=== PATIENT | female | born 1995 | race Caucasian/White ===

== ENCOUNTER 2016-10-01 11:10 | Emergency (ER) | payer OTHER ==
[2016-10-01 11:18] VITALS: TEMP 98.5; BMI 20.7
--- NOTE | 2016-10-01 11:47 | PDOC ---
History of Present Illness - General Chief Complaint: Lightheaded Stated Complaint: DIZZINESS, SOB Time Seen by Provider: 10/01/16 11:36 History Source: Patient Exam Limitations: No Limitations - History of Present Illness Initial Comments: 10/01/16 11:41 21 yo F with no significant PMHx presents with 3 hr history of chest discomfort and dizziness. SHe states that this morning at 800 she felt dizzy while getting out of bed. She states that she feels as if the room is spinning and made worse by position change. Dizziness is accompanied by intermittent 6/10 stabbing chest pain that radiates from left to right sternal border made worse by coughing. She cough is non-productive and 3 days in duration. Denies fevers, chills, recent travel , sick contacts. Presenting Symptoms: Chest Pain Timing/Duration: reports: intermittent Severity/Quality: reports: moderate Location: reports: other (left chest wall ) Chest Pain Radiation: reports: other (right chest wall ) Activities at Onset: reports: none Modifying Factors: improves with: breathing Associated Symptoms: Yes: Dizziness Past History - Travel Traveled outside of the country in the last 30 days: No Close contact w/someone who was outside of country & ill: No - Past Medical History Allergies/Adverse Reactions: Allergies Allergy/AdvReac Type Severity Reaction Status Date / Time No Known Allergies Allergy Verified 10/01/16 11:18 Home Medications: Ambulatory Orders NK [No Known Home Medication] 11/14/14 - Immunization History Immunization Up to Date: Yes - Psycho/Social/Smoking Cessation Hx Anxiety: No Suicidal Ideation: No Smoking Status: No Smoking History: Never smoked Number of Cigarettes Smoked Daily: 0 Hx Alcohol Use: No Drug/Substance Use Hx: No Substance Use Type: None Review of Systems - Review of Systems Able to Perform ROS?: Yes Is the patient limited Frisian proficient: No Cardiac (ROS): Yes: Chest Pain, Lightheadedness ABD/GI: Yes: Nausea Neurological: Yes: Dizziness All Other Systems: Reviewed and Negative *Physical Exam - Vital Signs Last Vital Signs Temp Pulse Resp BP Pulse Ox 98.5 F 78 18 130/88 100 10/01/16 11:16 10/01/16 11:16 10/01/16 11:16 10/01/16 11:16 10/01/16 11:16 - Physical Exam General Appearance: Yes: Mild Distress HEENT: positive: EOMI, HOPE Respiratory/Chest: positive: Lungs Clear, Normal Breath Sounds. negative: Respiratory Distress, Accessory Muscle Use Cardiovascular: positive: Regular Rhythm, Regular Rate, S1, S2. negative: Edema , JVD, Murmur Gastrointestinal/Abdominal: positive: Normal Bowel Sounds, Flat, Soft Extremity: positive: Normal Capillary Refill, Normal Inspection, Normal Range of Motion Integumentary: positive: Normal Color, Dry, Warm. 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 NML intact, Fully Oriented, Alert, Normal Mood/ Affect, Motor Strength 10/14 ED Treatment Course - LABORATORY CBC & Chemistry Diagram: 10/01/16 11:50 10/01/16 11:50 - ADDITIONAL ORDERS Additional order review: Laboratory Results 10/01/16 11:50 Sodium 141 Potassium 4.2 Chloride 105 Carbon Dioxide 25 Anion Gap 11 BUN 13 D Creatinine 0.7 D Creat Clearance w eGFR > 60 Random Glucose 64 L D Calcium 8.9 Total Bilirubin 0.4 AST 14 L ALT 20 Alkaline Phosphatase 93 Troponin I < 0.02 Total Protein 7.5 Albumin 4.0 10/01/16 11:50 RBC 4.22 MCV 92.0 MCHC 34.3 RDW 12.5 MPV 7.2 L Neutrophils % 63.0 Lymphocytes % 26.3 Monocytes % 8.0 Eosinophils % 2.0 Basophils % 0.7 - Medications Given in the ED: ED Medications Discontinued Medications Generic Name Dose Route Start Last Admin Trade Name Freq PRN Reason Stop Dose Admin Sodium Chloride 1,000 mls @ 1,000 mls/hr 10/01/16 11:48 10/01/16 11:55 Normal Saline - IV 10/01/16 12:47 1,000 mls/hr ASDIR STA Administration Ketorolac Tromethamine 30 mg 10/01/16 12:36 10/01/16 13:39 Toradol Injection - IVPUSH 10/01/16 12:37 30 mg ONCE ONE Administration Medical Decision Making - Medical Decision Making 10/01/16 11:56 21 yo F with no significant PMHx presents with 3 hr history of chest discomfort and dizziness. Most likely vertigo. Will send stat labs to r/o ACS and any metabolic abnormalities. WIll give meclizine and 1L IV NS. 10/01/16 14:43 Patient doing much better after fluids and toradol. Labs WNL. Will discharge home *DC/Admit/Observation/Transfer Diagnosis at time of Disposition: Atypical chest pain - Discharge Dispostion Admit: No - Referrals Referrals: Jen Ang MD [Primary Care Provider] - - Patient Instructions Printed Discharge Instructions: DI for Costochondritis Additional Instructions: Please establish care ALEKSANDR with primary physician. Pain is most likely costrochondritis. Ibuprofen for pain. Regular diet. Increase activity as tolerated. If pain returns or worsens please return to ER.
[2016-10-01] MEDS ORDERED: SODIUM CHLORIDE 1,000 ML IV STA (11:48)
[2016-10-01 11:55] LABS: BASOPHIL 0.7 % (0-2.0); MCH 31.6 pg (25.7-33.7); MCHC 34.3 g/dl (32.0-36.0); MEAN PLT VOLUME 7.2 fl (7.5-11.1); PLATELET COUNT 268 K/MM3 (134-434); RDW 12.5 % (11.6-15.6); WHITE BLOOD COUNT 7.9 K/mm3 (4.0-10.0)
[2016-10-01 12:22] LABS: ANION GAP 11 (8-16); BILIRUBIN,TOTAL 0.4 mg/dL (0.2-1.0); CALCIUM 8.9 mg/dL (8.5-10.1); CO2 25 mmol/L (21-32); COCKROFT - GAULT 114.7415; CREATININE 0.7 mg/dL (0.55-1.02); GLUCOSE,RANDOM 64 mg/dL (74-106); SGOT/AST 14 U/L (15-37); SGPT/ALT 20 U/L (12-78); TOT PROT 7.5 g/dl (6.4-8.2)
[2016-10-01 12:25] LABS: ALK PHOS 93 U/L (45-117); TROPONIN I < 0.02 ng/ml (0.00-0.05)
--- NOTE | 2016-10-01 12:31 | PDOC ---
Attending Attestation - Resident Resident Name: Aurelio Recinos - ED Attending Attestation I have performed the following: I have examined & evaluated the patient, The case was reviewed & discussed with the resident, I agree w/resident's findings & plan - HPI HPI: 10/01/16 14:54 21y F wo pmhx presents with mild chest discomfort and dizziness for the past 3 hrs, pt feels room spinning dizziness that is positional, associated with approx 3 days of nonproductive coughing which exacerbates her cp. no associated hemoptysis, leg swelling, gaston. exam unremarakble beside mild reproducible tenderess in the sternum. labs unremarkble suspect costocondritis with mild vertigo will dc with pmd fu return precautions were discussed - Physicial Exam PE: 10/02/16 17:57 see above - Medical Decision Making 10/02/16 17:57 see above Heart Score/ECG Review - ECG Impressions Comment:: 10/01/16 17:33 Twelve-lead EKG was performed and reviewed by me. There is normal sinus rhythm with a normal rate. rate of 75 The axis is normal. The intervals are normal. There is normal R wave progression There are no ST or T wave abnormalities. Impression: Normal twelve-lead EKG
[2016-10-01] MEDS ORDERED: KETOROLAC TROMETHAMINE 30 MG/1 ML VIAL IVPUSH ONE (12:36)
[2016-10-01] MEDS ORDERED: KETOROLAC TROMETHAMINE 30 MG/1 ML VIAL ONE (13:27)
[2016-10-01 15:33] VITALS: BP 115/78; PULSE 71
--- NOTE | 2016-10-03 12:15 | EKG ---
Test Reason : Blood Pressure : / mmHG Vent. Rate : 075 BPM Atrial Rate : 075 BPM P-R Int : 160 ms QRS Dur : 078 ms QT Int : 378 ms P-R-T Axes : 026 057 053 degrees QTc Int : 422 ms NORMAL SINUS RHYTHM NORMAL ECG WHEN COMPARED WITH ECG OF 14-NOV-2014 23:32, NO SIGNIFICANT CHANGE WAS FOUND Confirmed by KARY MONTELONGO MD ([id number]) on 10/03/2016 12:15:36 PM Referred By: Confirmed By:KARY MONTELONGO MD
== END 2016-10-01 15:33 | disposition home or self-care (01) ==
LOC: JER 11:10
PROC: 3E0337Z Introduction of Electrolytic and Water Balance Substance into Peripheral Vein, Percutaneous Approach (ICD-10-PCS; principal; 2016-10-01)
PROC: 3E0333Z Introduction of Anti-inflammatory into Peripheral Vein, Percutaneous Approach (ICD-10-PCS; 2016-10-01)
DX: R07.89 Other chest pain (principal)
CPT/HCPCS: 36415; 80053; 84484; 84703; 85025; 93005; 93010; 96361; 96374; 99283-25

== ENCOUNTER 2018-07-07 20:13 | Inpatient (IN) | payer OTHER ==
[2018-07-07] MEDS: DEXTROSE 5%-LACTATED RINGERS 1,000 ML IV SCH (21:00)
[2018-07-07 21:50] LABS: BASO % 0.2 % (0-2.0); EOS % 0.3 % (0-4.5); HEMATOCRIT 32.7 % (32.4-45.2); HEMOGLOBIN 11.4 GM/dL (10.7-15.3); MCH 30.6 pg (25.7-33.7); MCHC 34.8 g/dl (32.0-36.0); MEAN PLT VOLUME 8.7 fl (7.5-11.1); MONO % 5.4 % (3.8-10.2); NEUT % 82.1 % (42.8-82.8); PLATELET COUNT 307 K/MM3 (134-434); RBC 3.71 M/mm3 (3.60-5.2); RDW 15.8 % (11.6-15.6)
[2018-07-07] MEDS ORDERED: DINOPROSTONE 10 MG VAGINAL SUPPOSITORY VG ONE (21:51)
--- NOTE | 2018-07-07 21:57 | HP ---
Past Medical History - Admission Chief Complaint: Vaginal bleeding History of Present Illness: 23 yo , @ 39 weeks gestation, EDC 07/12/18, presents c/o vaginal bleeding. Upon admission, she was 1-2 cm dilated with intact membrane. History Source: Patient Limitations to Obtaining History: No Limitations - Past Medical History ...: 1 ...Para: 0 ...EDC by [facility]: 07/12/18 - Past Surgical History Past Surgical History: Yes: None Hx Myomectomy: No Hx Transabdominal Cerclage: No - Smoking History Smoking history: Never smoked Aproximately how many cigarettes per day: 0 - Alcohol/Substance Use Hx Alcohol Use: No - Social History Usual Living Arrangement: Yes: With Parent History of Recent Travel: No Home Medications - Allergies Allergies/Adverse Reactions: Allergies Allergy/AdvReac Type Severity Reaction Status Date / Time No Known Allergies Allergy Verified 06/09/18 12:21 - Home Medications Home Medications: Ambulatory Orders Ferrous Sulfate 1 tab PO DAILY 06/09/18 One Tablet 1 tab PO DAILY 06/09/18 Family Disease History - Family Disease History Family History: Unremarkable Review of Systems - Review of Systems Constitutional: reports: No Symptoms Eyes: reports: No Symptoms HENT: reports: No Symptoms Neck: reports: No Symptoms Cardiovascular: reports: No Symptoms Respiratory: reports: No Symptoms Gastrointestinal: reports: No Symptoms Genitourinary: reports: Pain Breasts: reports: No Symptoms Reported Musculoskeletal: reports: No Symptoms Neurological: reports: No Symptoms Psychiatric: reports: No Symptoms Pain Intensity: 3 Physical Exam - Maternity Constitutional: Yes: Well Nourished Eyes: Yes: Conjunctiva Clear HENT: Yes: Atraumatic Neck: Yes: Supple Cardiovascular: Yes: Regular Rate and Rhythm Lungs: Clear to auscultation - Abdominal Exam/OB Number of Fetuses: Single Presentation: Vertex Intensity: Mild/Mod - Vaginal Exam/OB Dilatation (cm): 1-2 Effacement (%): 80 Amniotic Membrane Status: Intact Station: -3 - Physical Exam Musculoskeletal: Yes: WNL Extremities: Yes: WNL ...Motor Strength: WNL Psychiatric: Yes: Alert, Oriented Problem List - Problems (1) 39 weeks gestation of Code(s): Z3A.39 - 39 WEEKS GESTATION OF (2) Vaginal bleeding during , antepartum Code(s): O46.90 - ANTEPARTUM HEMORRHAGE, UNSPECIFIED, UNSPECIFIED TRIMESTER Assessment/Plan 39 weeks gestation Vaginal bleeding Cervidil induction Admit to L&D GBS prophylaxis Analgesia as needed Anticipate
[2018-07-07] MEDS ORDERED: AMPICILLIN - 2 GM in SODIUM CHLORIDE 100 ML IVPB ONE (21:58)
[2018-07-07] MEDS ORDERED: ACETAMINOPHEN 325 MG TABLET (FP) PO ONE (21:58)
[2018-07-07 22:11] LABS: ANION GAP 10 MMOL/L (8-16); BLOOD UREA NITROGEN 11 mg/dL (7-18); CALCIUM 8.7 mg/dL (8.5-10.1); CHLORIDE 106 mmol/L (98-107); CO2 21 mmol/L (21-32); CREATININE 0.6 mg/dL (0.55-1.3); GLUCOSE,RANDOM 88 mg/dL (74-106); SODIUM 137 mmol/L (136-145)
[2018-07-07 22:30] LABS: INR 0.92 (0.83-1.09); PROTHROMBIN TIME (PATIENT) 10.8 SEC (9.7-13.0)
[2018-07-07 22:33] LABS: ACTIVATED PTT 23.6 SECONDS (25.2-36.5)
[2018-07-07 22:38] VITALS: BMI 29.6
[2018-07-07] MEDS ORDERED: ACETAMINOPHEN 325 MG TABLET (FP) ONE (22:41)
[2018-07-07] MEDS ORDERED: AMPICILLIN SODIUM 2 GM VIAL ONE (22:42)
[2018-07-07] MEDS ORDERED: BUTORPHANOL TARTRATE 1 MG/ML VIAL ONE ×2 (23:17)
[2018-07-07] MEDS ORDERED: PROMETHAZINE HCL 25 MG/1 ML VIAL ONE (23:17)
[2018-07-07] MEDS: PROMETHAZINE HCL 25 MG/1 ML VIAL IVPUSH PRN (23:30)
[2018-07-07] MEDS: BUTORPHANOL TARTRATE 2 MG/ML VIAL IVPUSH PRN (23:30)
[2018-07-08] MEDS ORDERED: AMPICILLIN SODIUM 1 GM VIAL ONE (02:22)
[2018-07-08] MEDS ORDERED: BUTORPHANOL TARTRATE 1 MG/ML VIAL ONE ×2 (03:20)
[2018-07-08] MEDS ORDERED: PROMETHAZINE HCL 25 MG/1 ML VIAL ONE (03:20)
[2018-07-08] MEDS: PROMETHAZINE HCL 25 MG/1 ML VIAL IVPUSH PRN (03:35)
[2018-07-08] MEDS: BUTORPHANOL TARTRATE 2 MG/ML VIAL IVPUSH PRN (03:35)
[2018-07-08] MEDS ORDERED: OXYTOCIN 20 UNITS in 0.9% NS 20 UNIT/1,000 ML INFUS.BAG IV ONE ×2 (04:19→06:21)
[2018-07-08] MEDS ORDERED: LIDOCAINE HCL 1% PRESERVATIVE FREE - 30ML VIAL ONE (04:19)
[2018-07-08] MEDS: OXYTOCIN 20 UNITS in 0.9% NS 20 UNIT/1,000 ML INFUS.BAG IV SCH ×2 (04:50→17:00)
[2018-07-08] MEDS ORDERED: BENZOCAINE 28 GM HEMORRHOIDAL OINTMENT TP PRN (05:07)
[2018-07-08] MEDS ORDERED: BENZOCAINE 20% 57 GM BOTTLE TP PRN (05:07)
[2018-07-08] MEDS ORDERED: WITCH HAZEL 50% (TUCKS) 40 PAD/JAR PAD TP PRN (05:07)
[2018-07-08] MEDS ORDERED: BISACODYL 10 MG SUPP.RECT RC PRN (05:07)
[2018-07-08] MEDS ORDERED: METHYLERGONOVINE MALEATE 0.2 MG/1 ML AMP IM PRN (05:07)
--- NOTE | 2018-07-08 05:11 | PN ---
Delivery - Delivery Vaginal Delivery: Spontaneous Type of Anesthesia: Local Episiotomy/Laceration: 2nd degree EBL (cc): 350 Delivery, Single - Feeding Plan Initial Plan: Elected not to breastfeed exclusively throughout hospitalization Remarks - Remarks Remarks: Normal spontaneous vaginal delivery of a live infant girl over second degree laceration. Nose / Oropharynx suctioned @ perineum. Cord clamped and cut. Placenta expelled spontaneously intact. Baby handed to neonatology nurse Laceration repaired with 2.0 Chromic.
[2018-07-08] MEDS: IBUPROFEN 600 MG TABLET (FP) PO PRN ×3 (08:30→21:22)
[2018-07-08] MEDS ORDERED: IBUPROFEN 600 MG TABLET (FP) PO ONE (08:31)
[2018-07-08] MEDS: FERROUS SO4 325 MG TABLET (FP) PO SCH ×2 (09:49→21:22)
[2018-07-08] MEDS: PRENATAL VITAMINS W/ FOLIC ACID TABLET (FP) PO SCH (09:49)
[2018-07-08] MEDS: ACETAMINOPHEN 325 MG TABLET (FP) PO PRN ×2 (12:36→21:23)
[2018-07-09] MEDS: DEXTROSE 5%-LACTATED RINGERS 1,000 ML IV SCH (02:28)
[2018-07-09 06:04] LABS: BASO % 0.5 % (0-2.0); EOS % 1.3 % (0-4.5); HEMATOCRIT 25.7 % (32.4-45.2); LYMPH % 15.1 % (8-40); MCH 31.2 pg (25.7-33.7); MCHC 35.1 g/dl (32.0-36.0); MEAN CELL VOLUME 88.9 fl (80-96); MEAN PLT VOLUME 8.3 fl (7.5-11.1); MONO % 7.6 % (3.8-10.2); NEUT % 75.5 % (42.8-82.8); PLATELET COUNT 228 K/MM3 (134-434); RBC 2.89 M/mm3 (3.60-5.2); RDW 16.3 % (11.6-15.6); WHITE BLOOD COUNT 12.8 K/mm3 (4.0-10.0)
[2018-07-09] MEDS ORDERED: DIPHTH,PERTUSS(ACELL),TET 0.5 ML DISP.SYRIN IM ONE (10:00)
[2018-07-09] MEDS: PRENATAL VITAMINS W/ FOLIC ACID TABLET (FP) PO SCH (10:42)
[2018-07-09] MEDS: IBUPROFEN 600 MG TABLET (FP) PO PRN ×2 (10:42→20:10)
[2018-07-09] MEDS: FERROUS SO4 325 MG TABLET (FP) PO SCH ×2 (10:42→21:19)
[2018-07-09] MEDS: ACETAMINOPHEN 325 MG TABLET (FP) PO PRN ×2 (10:43→20:09)
[2018-07-09] MEDS ORDERED: SENNOSIDES/DOCUSATE COMBO (SENNA PLUS) TABLET (UD) PO PRN (22:00)
[2018-07-10] MEDS: IBUPROFEN 600 MG TABLET (FP) PO PRN ×2 (04:58→09:13)
[2018-07-10] MEDS: ACETAMINOPHEN 325 MG TABLET (FP) PO PRN ×2 (04:58→09:13)
--- NOTE | 2018-07-10 05:30 | DS ---
Physical Exam-[facility] Vital Signs: Vital Signs Temperature 97.8 F 07/09/18 22:00 Pulse Rate 89 07/09/18 22:00 Respiratory Rate 18 07/09/18 22:00 Blood Pressure 129/72 07/09/18 22:00 O2 Sat by Pulse Oximetry (%) 100 07/08/18 06:15 Constitutional: Yes: Well Nourished Eyes: Yes: Conjunctiva Clear HENT: Yes: Atraumatic Neck: Yes: Supple Cardiovascular: Yes: Regular Rate and Rhythm Respiratory: Yes: Regular Gastrointestinal: Yes: Normal Bowel Sounds External Genitalia: Yes: Normal Vaginal Exam: Yes: Normal Cervix: Yes: Normal Uterus: Yes: Firm ....Post : Yes: Uterus firm Breast(s): Yes: WNL Musculoskeletal: Yes: WNL Extremities: Yes: WNL Neurological: Yes: Alert, Oriented ...Motor Strength: WNL Psychiatric: Yes: Alert, Oriented Labs: CBC, BMP 07/09/18 05:55 07/07/18 21:15 Delivery - Delivery Vaginal Delivery: Spontaneous Type of Anesthesia: Local Episiotomy/Laceration: 2nd degree EBL (cc): 350 Delivery, Single - Stages of Labor Date 1st Stage Initiatied: 07/07/18 Time 1st Stage Initiated: 23:30 Date 2nd Stage Initiated: 07/08/18 Time 2nd Stage Initiated: 04:30 Date of Delivery: 07/08/18 Time of Delivery: 04:42 Time Placenta Delivered: 04:45 - Condition of Head Of Quality/Damaged Freight Inspector Present: No Infant Gender: Female Weight: 6 lb 9 oz Position: Right, OA Total Hours ROM (Hrs/Mins): 1h 42m - 1 Minute Total Score: 9 5 Minutes Total Score: 9 - [place] Feeding Plan Initial Plan: Elected not to breastfeed exclusively throughout hospitalization Discharge Summary Reason For Visit: ADMIT INDUCTION OF LABOR Current Active Problems 39 weeks gestation of (Acute) Vaginal bleeding during , antepartum (Acute) Procedures: Principal: Normal spontaneous vaginal delivery Hospital Course: Routine care Condition: Good - Instructions Diet, Activity, Other Instructions: Regular diet No douching, no sexual intercourse x 6 weeks F/U with MD in 6 weeks Disposition: HOME - Home Medications Comprehensive Discharge Medication List: Ambulatory Orders Ferrous Sulfate 1 tab PO DAILY 06/09/18 One Tablet 1 tab PO DAILY 06/09/18
[2018-07-10 08:43] VITALS: BP 138/80; PULSE 93; TEMP 98.7
[2018-07-10] MEDS: FERROUS SO4 325 MG TABLET (FP) PO SCH (09:13)
[2018-07-10] MEDS: PRENATAL VITAMINS W/ FOLIC ACID TABLET (FP) PO SCH (09:13)
== END 2018-07-10 11:40 | disposition home or self-care (01) | DRG 560 ==
LOC: JDEL 20:13 → JLDR 21:23 → UNDOADMIN 21:23 → JLDR 21:43 → J3W 07-08 08:55
PROVIDERS: ADMIT Obstetrics & Gynecology; ATTEND Obstetrics & Gynecology
PROC: 10E0XZZ Delivery of Products of Conception, External Approach (ICD-10-PCS; principal; 2018-07-08)
PROC: 0KQM0ZZ Repair Perineum Muscle, Open Approach (ICD-10-PCS; 2018-07-08)
PROC: 0W8NXZZ Division of Female Perineum, External Approach (ICD-10-PCS; 2018-07-08)
DX: O70.1 Second degree perineal laceration during delivery (principal); Z3A.39 39 weeks gestation of pregnancy; Z37.0 Single live birth
CPT/HCPCS: 36415; 59025; 59409; 80048; 85025; 85610; 85730; 86593; 86850; 86900; 86901; 90715

== ENCOUNTER 2018-08-09 00:29 | Emergency (ER) | payer OTHER ==
[2018-08-09 00:34] VITALS: BP 147/90; PULSE 104; TEMP 97.9; BMI 26.6
--- NOTE | 2018-08-09 00:46 | PDOC ---
History of Present Illness - General History Source: Patient Exam Limitations: No Limitations - History of Present Illness Initial Comments: 08/09/18 02:11 The patient is a 23 year old female, with no significant past medical history, who presents to the emergency department with, chest pain. Patient describes her chest pain as pressure-like onsetting while with family. Patient gave one month ago, . She denies any worsening or alleviating factors. She denies recent fevers, chills, headache or dizziness. She denies recent nausea, vomit, diarrhea or constipation. She denies recent dysuria, frequency, urgency or hematuria. She denies recent shortness of breath. Allergies: NKDA <Augustina Gould - Last Filed: 08/09/18 02:11> <Pau Curiel - Last Filed: 08/09/18 03:48> - General Chief Complaint: Chest Pain Stated Complaint: CHEST PAIN Time Seen by Provider: 08/09/18 00:46 Past History <Augustina Gould - Last Filed: 08/09/18 02:11> - Past Medical History Asthma: No Cancer: No Cardiac Disorders: No COPD: No Diabetes: No HTN: No Seizures: No Thyroid Disease: No - Immunization History Immunization Up to Date: Yes - Suicide/Smoking/Psychosocial Hx Smoking Status: No Smoking History: Unknown if ever smoked Number of Cigarettes Smoked Daily: 0 Hx Alcohol Use: No Drug/Substance Use Hx: No Substance Use Type: None Hx Substance Use Treatment: No <Pau Curiel - Last Filed: 08/09/18 03:48> - Past Medical History Allergies/Adverse Reactions: Allergies Allergy/AdvReac Type Severity Reaction Status Date / Time No Known Allergies Allergy Verified 07/08/18 06:25 Home Medications: Ambulatory Orders NK [No Known Home Medication] 08/09/18 Review of Systems - Review of Systems Able to Perform ROS?: Yes Comments:: 08/09/18 02:11 GENERAL/CONSTITUTIONAL: No fever or chills. No weakness. HEAD, EYES, EARS, NOSE AND THROAT: No change in vision. No ear pain or discharge. No sore throat. GASTROINTESTINAL: No nausea, vomiting, diarrhea or constipation. GENITOURINARY: No dysuria, frequency, or change in urination. CARDIOVASCULAR: +Chest pain. No shortness of breath. RESPIRATORY: No cough, wheezing, or hemoptysis. MUSCULOSKELETAL: No joint or muscle swelling or pain. No neck or back pain. SKIN: No rash NEUROLOGIC: No headache, vertigo, loss of consciousness, or change in strength/ sensation. ENDOCRINE: No increased thirst. No abnormal weight change. HEMATOLOGIC/LYMPHATIC: No anemia, easy bleeding, or history of blood clots. ALLERGIC/IMMUNOLOGIC: No hives or skin allergy. All Other Systems: Reviewed and Negative <Augustina Gould - Last Filed: 08/09/18 02:11> *Physical Exam - Vital Signs Last Vital Signs Temp Pulse Resp BP Pulse Ox 97.9 F 104 H 20 147/90 100 08/09/18 00:08/09/18 00:08/09/18 00:08/09/18 00:08/09/18 00:31 - Physical Exam Comments: 08/09/18 02:12 GENERAL: Awake, in no acute distress HEAD: No signs of trauma EYES: PERRLA, EOMI, sclera anicteric, conjunctiva clear, visual acuity grossly intact ENT: Moist mucosa NECK: Normal ROM, supple, no lymphadenopathy or JVD. LUNGS: Breath sounds equal, clear to auscultation bilaterally. No wheezes, and no crackles. Normal work of breathing. +HEART: Tachycardic. Regular rhythm, normal S1 and S2, no murmurs, rubs or gallops ABDOMEN: Soft, nontender, normoactive bowel sounds. No guarding. Non- distended. : CHEST WALL: BACK: No midline tenderness. EXTREMITIES: Normal range of motion, no edema. No clubbing or cyanosis. No erythema, or tenderness NEUROLOGICAL: Alert, and fully oriented x4, Cranial nerves II through XII grossly intact. Normal speech, normal gait. DTRs 2/4 bilaterally. SKIN: Warm, Dry, normal turgor, no rashes or lesions noted. <Augustina Gould - Last Filed: 08/09/18 02:11> - Vital Signs Last Vital Signs Temp Pulse Resp BP Pulse Ox 97.9 F 104 H 20 147/90 100 08/09/18 00:31 08/09/18 00:08/09/18 00:08/09/18 00:31 08/09/18 00:31 <Pau Curiel - Last Filed: 08/09/18 03:48> Moderate Sedation - Procedure Monitoring Vital Signs: Procedure Monitoring Vital Signs Temperature 97.9 F 08/09/18 00:31 Pulse Rate 104 H 08/09/18 00:31 Respiratory Rate 20 08/09/18 00:31 Blood Pressure 147/90 08/09/18 00:31 O2 Sat by Pulse Oximetry (%) 100 08/09/18 00:31 <Augustina Gould - Last Filed: 08/09/18 02:11> - Procedure Monitoring Vital Signs: Procedure Monitoring Vital Signs Temperature 97.9 F 08/09/18 00:31 Pulse Rate 104 H 08/09/18 00:31 Respiratory Rate 20 08/09/18 00:31 Blood Pressure 147/90 08/09/18 00:31 O2 Sat by Pulse Oximetry (%) 100 08/09/18 00:31 <Pau Curiel - Last Filed: 08/09/18 03:48> Heart Score/ECG Review - ECG Intrepretation Comment:: 08/09/18 03:43 EKG shows a normal sinus rhythm at 78 bpm with no acute ST elevations Rhythm strip shows a sinus rhythm at 75-80 bpm <Pau Curiel - Last Filed: 08/09/18 03:48> ED Treatment Course - LABORATORY CBC & Chemistry Diagram: 08/09/18 00:56 08/09/18 02:00 <Pau Curiel - Last Filed: 08/09/18 03:48> Medical Decision Making - Medical Decision Making 08/09/18 03:44 23-year-old female, 1 month with chest pressure Chest x-ray shows no acute pulmonary disease There are multiple enlarged bowel loops D-dimer is within normal limits and patient is chest pain-free after IV Tylenol 1 g Troponin is within normal limits Plan for DC home Results discussed with the patient <Pau Curiel - Last Filed: 08/09/18 03:48> *DC/Admit/Observation/Transfer - Attestations Scribe Attestion: 08/09/18 02:12 Documentation prepared by Augustina Gould, acting as medical transcription radiology for Pau Curiel DO. <Augustina Gould - Last Filed: 08/09/18 02:11> - Discharge Dispostion Decision to Admit order: No - Attestations Physician Attestion: 08/09/18 03:46 I, Dr Pau Curiel, attest that this document has been prepared under my direction and personally reviewed by me in its entirety. I further attest, that it accurately reflects all work, procedures and medical decision making performed by me. <Pau Curiel - Last Filed: 08/09/18 03:48> Diagnosis at time of Disposition: Chest pain - Discharge Dispostion Disposition: HOME Condition at time of disposition: Stable - Patient Instructions Printed Discharge Instructions: DI for Atypical Chest Pain Additional Instructions: If you develop leg swelling shortness of breath or return of chest pain return to the emergency department for repeat evaluation. Otherwise follow-up with your regular physicians as scheduled.
[2018-08-09] MEDS ORDERED: ACETAMINOPHEN 1000 MG/100 ML VIAL (NON FORMULARY) IVPB ONE (00:57)
[2018-08-09] MEDS ORDERED: ACETAMINOPHEN INJECTION 100 ML IVPB ONE (02:10)
[2018-08-09 02:21] LABS: HEMOGLOBIN 12.2 GM/dL (10.7-15.3); MCH 30.2 pg (25.7-33.7); MCHC 33.9 g/dl (32.0-36.0); MEAN CELL VOLUME 89.1 fl (80-96); PLATELET COUNT 340 K/MM3 (134-434); RBC 4.05 M/mm3 (3.60-5.2); RDW 16.7 % (11.6-15.6); WHITE BLOOD COUNT 9.8 K/mm3 (4.0-10.0)
[2018-08-09 02:57] LABS: ALBUMIN 3.8 g/dl (3.4-5.0); ALK PHOS 155 U/L (45-117); ANION GAP 4 MMOL/L (8-16); BILIRUBIN,TOTAL 0.2 mg/dL (0.2-1); BLOOD UREA NITROGEN 9 mg/dL (7-18); CALCIUM 8.9 mg/dL (8.5-10.1); CHLORIDE 105 mmol/L (98-107); CO2 29 mmol/L (21-32); CREATININE 0.6 mg/dL (0.55-1.3); GLUCOSE,RANDOM 85 mg/dL (74-106); POTASSIUM 4.2 mmol/L (3.5-5.1); SGOT/AST 18 U/L (15-37); SGPT/ALT 19 U/L (13-61); SODIUM 137 mmol/L (136-145); TOT PROT 7.7 g/dl (6.4-8.2)
--- NOTE | 2018-08-10 10:32 | EKG ---
Test Reason : Blood Pressure : / mmHG Vent. Rate : 078 BPM Atrial Rate : 078 BPM P-R Int : 168 ms QRS Dur : 076 ms QT Int : 382 ms P-R-T Axes : 052 062 063 degrees QTc Int : 435 ms POOR DATA QUALITY, INTERPRETATION MAY BE ADVERSELY AFFECTED NORMAL SINUS RHYTHM NORMAL ECG WHEN COMPARED WITH ECG OF 01-OCT-2016 11:22, NO SIGNIFICANT CHANGE WAS FOUND Confirmed by MICHELLE ADLER MD ([id number]) on 08/10/2018 10:32:27 AM Referred By: Confirmed By:MICHELLE ADLER MD
== END 2018-08-09 03:56 | disposition home or self-care (01) ==
LOC: JER 00:29
PROC: 3E033NZ Introduction of Analgesics, Hypnotics, Sedatives into Peripheral Vein, Percutaneous Approach (ICD-10-PCS; principal; 2018-08-09)
DX: R07.9 Chest pain, unspecified (principal)
CPT/HCPCS: 36415; 71046-TC-FY; 80053; 84484; 85027; 85379; 93005; 93010; 99284-25; J0131

== ENCOUNTER 2018-11-19 00:52 | Emergency (ER) | payer OTHER | END 2018-11-19 03:12 | disposition home or self-care (01) | LOC: JER 00:52 ==

== ENCOUNTER 2020-08-19 15:08 | Emergency (ER) | payer OTHER ==
[2020-08-19 15:17] VITALS: BP 109/64; PULSE 91; TEMP 98; BMI 25.0
[2020-08-19] MEDS ORDERED: FAMOTIDINE 20 MG/50 ML IVPB 20 MG/50 ML MG IVPB ONE ×2 (16:00→16:11)
[2020-08-19] MEDS ORDERED: SODIUM CHLORIDE 1,000 ML IV STA (16:00)
[2020-08-19] MEDS ORDERED: hydrOXYzine PAMOATE 50 MG CAPSULE (FP) PO ONE (16:00)
[2020-08-19] MEDS ORDERED: hydrOXYzine PAMOATE 25 MG CAPSULE (FP) PO ONE (16:10)
[2020-08-19 16:51] LABS: BASO % 0.5 % (0-2.0); EOS % 0.8 % (0-4.5); HEMATOCRIT 38.9 % (32.4-45.2); HEMOGLOBIN 13.4 GM/dL (10.7-15.3); LYMPH % 16.4 % (8-40); MCH 30.9 pg (25.7-33.7); MCHC 34.5 g/dl (32.0-36.0); MEAN CELL VOLUME 89.4 fl (80-96); MEAN PLT VOLUME 7.6 fl (7.5-11.1); MONO % 6.2 % (3.8-10.2); NEUT % 76.1 % (42.8-82.8); PLATELET COUNT 366 K/MM3 (134-434); RBC 4.35 M/mm3 (3.60-5.2); RDW 12.8 % (11.6-15.6); WHITE BLOOD COUNT 10.5 K/mm3 (4.0-10.0)
[2020-08-19 17:18] LABS: CHLORIDE 110 mmol/L (98-107); SODIUM 140 mmol/L (136-145)
[2020-08-19 17:20] LABS: CALCIUM 8.7 mg/dL (8.5-10.1)
[2020-08-19 17:21] LABS: ALBUMIN 3.7 g/dl (3.4-5.0); ANION GAP 5 MMOL/L (8-16); BLOOD UREA NITROGEN 10.4 mg/dL (7-18); CO2 24 mmol/L (21-32); GLUCOSE,RANDOM 93 mg/dL (74-106)
[2020-08-19 17:24] LABS: CREATININE 0.6 mg/dL (0.55-1.3); SGOT/AST 13 U/L (15-37); SGPT/ALT 15 U/L (13-61)
[2020-08-19 17:25] LABS: BILIRUBIN,TOTAL 0.3 mg/dL (0.2-1); TOT PROT 7.6 g/dl (6.4-8.2)
[2020-08-19 17:27] LABS: ALK PHOS 87 U/L (45-117)
[2020-08-19 18:24] LABS: EPI CELLS 11 /uL (0-25.1); HYALINE CASTS 1 /uL (0-3.1); URINE APPEARANCE CLEAR; URINE BACTERIA 305 /uL (0-1359); URINE BILIRUBIN NEGATIVE (NEGATIVE); URINE COLOR YELLOW; URINE GLUCOSE (UA) NEGATIVE (NEGATIVE); URINE KETONE NEGATIVE (NEGATIVE); URINE LEUK ESTERASE 1+ (NEGATIVE); URINE NITRITE NEGATIVE (NEGATIVE); URINE PROTEIN NEGATIVE (NEGATIVE); URINE RBC 11 /uL (0-23.9); URINE UROBILINOGEN 0.2 mg/dL (0.2-1.0); URINE WBC 13 /uL (0-25.8)
[2020-08-19 18:25] LABS: HCG,QUALITATIVE URINE Negative
== END 2020-08-19 18:40 | disposition home or self-care (01) ==
LOC: JER 15:08
PROC: 3E033GC Introduction of Other Therapeutic Substance into Peripheral Vein, Percutaneous Approach (ICD-10-PCS; principal; 2020-08-19)
DX: R07.89 Other chest pain (principal)
CPT/HCPCS: 36415; 80053; 81003; 82550; 84484; 84703; 85025; 87086; 93005; 93010; 99284-25

== ENCOUNTER 2021-04-09 12:24 | Emergency (ER) | payer OTHER ==
[2021-04-09 12:49] VITALS: BP 128/65; PULSE 84; TEMP 101.6; BMI 23.3
[2021-04-09] MEDS ORDERED: ACETAMINOPHEN 500 MG TABLET (FP) PO ONE (12:58)
[2021-04-09] MEDS ORDERED: ACETAMINOPHEN 500 MG TABLET (FP) ONE (13:12)
== END 2021-04-09 15:31 | disposition home or self-care (01) ==
LOC: JER 12:24
DX: U07.1 COVID-19 (principal); R05.1 Acute cough; R50.81 Fever presenting with conditions classified elsewhere
CPT/HCPCS: 71046-TC-FY; 87804; 99284-25; C9803; U0003; U0005

== ENCOUNTER 2022-09-22 08:48 | Emergency (ER) | payer OTHER ==
[2022-09-22 08:55] VITALS: BP 106/67; PULSE 85; RESP 18; TEMP 98.2; BMI 24.3
[2022-09-22 10:45] LABS: BASO % 0.4 % (0-2.0); EOS % 1.1 % (0-4.5); HEMATOCRIT 37.4 % (32.4-45.2); HEMOGLOBIN 12.9 GM/dL (10.7-15.3); LYMPH % 11.4 % (8-40); MCH 30.7 pg (25.7-33.7); MCHC 34.5 g/dl (32.0-36.0); MEAN PLT VOLUME 7.8 fl (7.5-11.1); MONO % 5.5 % (3.8-10.2); NEUT % 81.6 % (42.8-82.8); PLATELET COUNT 350 10^3/uL (134-434); RDW 12.8 % (11.6-15.6); WHITE BLOOD COUNT 12.4 K/mm3 (4.0-10.0)
[2022-09-22 10:48] LABS: EPI CELLS 33 /uL (0-25.1); HYALINE CASTS 2 /uL (0-3.1); URINE APPEARANCE CLEAR; URINE BACTERIA 152 /uL (0-1359); URINE BILIRUBIN NEGATIVE (NEGATIVE); URINE COLOR YELLOW; URINE GLUCOSE (UA) NEGATIVE (NEGATIVE); URINE KETONE NEGATIVE (NEGATIVE); URINE LEUK ESTERASE 2+ (NEGATIVE); URINE NITRITE NEGATIVE (NEGATIVE); URINE PROTEIN TRACE (NEGATIVE); URINE RBC 29 /uL (0-23.9); URINE WBC 36 /uL (0-25.8)
[2022-09-22 11:01] LABS: INR 1.04 (0.83-1.09); PROTHROMBIN TIME (PATIENT) 12.1 SEC (9.7-13.0)
[2022-09-22 11:04] LABS: ACTIVATED PTT 26.8 SECONDS (25.2-36.5)
[2022-09-22 11:09] LABS: ALBUMIN 3.8 g/dl (3.4-5.0); BLOOD UREA NITROGEN 6.8 mg/dL (7-18)
[2022-09-22 11:12] LABS: CREATININE 0.6 mg/dL (0.55-1.3)
[2022-09-22 11:14] LABS: BILIRUBIN,TOTAL 0.5 mg/dL (0.2-1); TOT PROT 7.8 g/dl (6.4-8.2)
== END 2022-09-22 12:22 | disposition home or self-care (01) ==
LOC: JERFT 08:48 → JER 08:48 → JERFT 12:22
DX: O23.11 Infections of bladder in pregnancy, first trimester (principal); O99.611 Diseases of the digestive system complicating pregnancy, first trimester; R10.30 Lower abdominal pain, unspecified; N30.00 Acute cystitis without hematuria; Z3A.01 Less than 8 weeks gestation of pregnancy
CPT/HCPCS: 36415; 76817-TC; 80053; 81003; 84702; 84703; 85025; 85610; 85730; 87086; 87491; 87591; 99284-25

== ENCOUNTER 2023-08-29 06:09 | Emergency (ER) | payer OTHER ==
[2023-08-29 06:18] VITALS: BMI 27.9
[2023-08-29] MEDS ORDERED: ACETAMINOPHEN INJECTION 100 ML IVPB ONE (07:36)
[2023-08-29] MEDS ORDERED: ONDANSETRON 4 MG/2 ML VIAL ONE ×2 (07:37→10:08)
[2023-08-29] MEDS ORDERED: FAMOTIDINE 20 MG/50 ML IVPB 20 MG/50 ML MG IVPB ONE (07:37)
[2023-08-29] MEDS ORDERED: MAG HYDROX/AL HYDROX/SIMETH 30 ML UNIT-DOSE CUP ONE (07:37)
[2023-08-29 08:49] LABS: HEMATOCRIT 42.4 % (32.4-45.2); HEMOGLOBIN 14.2 GM/dL (10.7-15.3); MCH 29.6 pg (25.7-33.7); MCHC 33.5 g/dl (32.0-36.0); MEAN CELL VOLUME 88.5 fl (80-96); MEAN PLT VOLUME 7.6 fl (7.5-11.1); PLATELET COUNT 359 10^3/uL (134-434); RBC 4.79 M/mm3 (3.60-5.2); RDW 12.7 % (11.6-15.6); WHITE BLOOD COUNT 10.8 K/mm3 (4.0-10.0)
[2023-08-29] MEDS: ACETAMINOPHEN 1000 MG/100 ML BAG IVPB ONE (08:49)
[2023-08-29] MEDS: SODIUM CHLORIDE 0.9% 500 ML INFUS.BAG IV ONE (08:49)
[2023-08-29] MEDS: MAG HYDROX/AL HYDROX/SIMETH 30 ML UNIT-DOSE CUP PO ONE (08:49)
[2023-08-29] MEDS: FAMOTIDINE 20 MG/50 ML IVPB 20 MG/50 ML MG IVPB ONE (08:50)
[2023-08-29] MEDS: ONDANSETRON 4 MG/2 ML VIAL IVPUSH ONE ×2 (08:50→10:09)
[2023-08-29 09:10] LABS: POTASSIUM 3.4 mmol/L (3.5-5.1)
[2023-08-29 09:12] LABS: CALCIUM 9.4 mg/dL (8.5-10.1)
[2023-08-29 09:13] LABS: BLOOD UREA NITROGEN 18.6 mg/dL (7-18)
[2023-08-29 09:15] LABS: CREATININE 0.8 mg/dL (0.55-1.3)
[2023-08-29 09:17] LABS: BILIRUBIN,TOTAL 0.8 mg/dL (0.2-1); TOT PROT 8.4 g/dl (6.4-8.2)
[2023-08-29] MEDS ORDERED: POTASSIUM CHLORIDE ORAL LIQUID 20 MEQ/15 ML ONE (10:08)
[2023-08-29] MEDS: POTASSIUM CHLORIDE ORAL LIQUID 20 MEQ/15 ML PO ONE (10:09)
[2023-08-29] MEDS: SODIUM CHLORIDE 1,000 ML IV ONE (10:19)
[2023-08-29 11:47] VITALS: BP 99/58; PULSE 106; RESP 17; TEMP 98.5
== END 2023-08-29 12:18 | disposition home or self-care (01) ==
LOC: JER 06:09
PROC: 3E033GC Introduction of Other Therapeutic Substance into Peripheral Vein, Percutaneous Approach (ICD-10-PCS; principal; 2023-08-29)
PROC: 3E033NZ Introduction of Analgesics, Hypnotics, Sedatives into Peripheral Vein, Percutaneous Approach (ICD-10-PCS; 2023-08-29)
PROC: 3E033GC Introduction of Other Therapeutic Substance into Peripheral Vein, Percutaneous Approach (ICD-10-PCS; 2023-08-29)
PROC: 3E033GC Introduction of Other Therapeutic Substance into Peripheral Vein, Percutaneous Approach (ICD-10-PCS; 2023-08-29)
DX: R10.84 Generalized abdominal pain (principal); R19.7 Diarrhea, unspecified; R11.2 Nausea with vomiting, unspecified; R42 Dizziness and giddiness; Z20.822 Contact with and (suspected) exposure to COVID-19
CPT/HCPCS: 0241U-QW; 36415; 80053; 84703; 85025; 99284-25; J0131

== ENCOUNTER 2024-06-29 12:43 | Emergency (ER) | payer OTHER ==
[2024-06-29 12:51] VITALS: BP 128/76; PULSE 88; RESP 19; TEMP 97.5; BMI 29.0
[2024-06-29] MEDS ORDERED: ACETAMINOPHEN 500 MG TABLET (FP) ONE (13:58)
[2024-06-29] MEDS ORDERED: IBUPROFEN 400 MG TABLET (FP) PO ONE (13:58)
[2024-06-29] MEDS: IBUPROFEN 400 MG TABLET (FP) PO ONE (14:01)
[2024-06-29] MEDS: ACETAMINOPHEN 500 MG TABLET (FP) PO ONE (14:01)
== END 2024-06-29 16:19 | disposition home or self-care (01) ==
LOC: JERFT 12:43
DX: S86.911A Strain of unspecified muscle(s) and tendon(s) at lower leg level, right leg, initial encounter (principal); X50.1XXA Overexertion from prolonged static or awkward postures, initial encounter
CPT/HCPCS: 73562-TC-RT-FY; 99283-25

== ENCOUNTER 2025-01-24 15:04 | Emergency (ER) | payer OTHER ==
[2025-01-24 15:32] VITALS: BMI 31.1
[2025-01-24] MEDS ORDERED: ACETAMINOPHEN 325 MG TABLET (FP) ONE (16:10)
[2025-01-24] MEDS: ACETAMINOPHEN 325 MG TABLET (FP) PO ONE (16:35)
[2025-01-24 17:42] VITALS: BP 117/75; PULSE 85; RESP 18; TEMP 98.8
[2025-01-24] MEDS ORDERED: IBUPROFEN 600 MG TABLET (FP) PO ONE (18:30)
[2025-01-24] MEDS: IBUPROFEN 600 MG TABLET (FP) PO ONE (18:34)
== END 2025-01-24 19:12 | disposition home or self-care (01) ==
LOC: JER 15:04
DX: R07.89 Other chest pain (principal)
CPT/HCPCS: 71046-TC-FY; 84703; 93005; 93010; 99285-25